=== PATIENT | female | born 1995 | race African-American/Black ===

== ENCOUNTER 2023-07-09 17:16 | Emergency (ER) | payer OTHER ==
[2023-07-09 17:29] VITALS: BP 109/72; PULSE 113; RESP 17; TEMP 98.4; BMI 20.1
== END 2023-07-09 19:59 | disposition home or self-care (01) ==
LOC: JERFT 17:16 → JER 17:16 → JERFT 19:59
DX: N60.12 Diffuse cystic mastopathy of left breast (principal)
CPT/HCPCS: 84703; 99283-25